=== PATIENT | male | born 1995 | race Hispanic/Latino ===

== ENCOUNTER 2018-12-08 21:15 | Emergency (ER) | payer OTHER ==
[2018-12-08 22:26] LABS: RAPID GROUP A STREP NEGATIVE (NEGATIVE)
[2018-12-08] MEDS ORDERED: DEXAMETHASONE SOD PHOSPHATE 10MG/ML 1ML VIAL ONE (22:28)
[2018-12-08] MEDS ORDERED: KETOROLAC TROMETHAMINE 60 MG/2 ML VIAL ONE (22:28)
[2018-12-08] MEDS ORDERED: ACETAMINOPHEN EXTRA STRENGTH 500 MG TABLET ONE (22:28)
[2018-12-08] MEDS ORDERED: IPRATROPIUM/ALBUTEROL SULFATE 3 ML SOLUTION IH ONE (22:29)
== END 2018-12-08 23:35 | disposition home or self-care (01) ==
LOC: EDH 21:15
DX: J09.X2 Influenza due to identified novel influenza A virus with other respiratory manifestations (principal); J45.909 Unspecified asthma, uncomplicated; E11.9 Type 2 diabetes mellitus without complications
CPT/HCPCS: 87804 ×2; 87880; 94640; 96372 ×2; 99283; J1100; J1885

== ENCOUNTER 2022-05-07 02:42 | Emergency (ER) | payer OTHER ==
[~2022-05-07] VITALS: Ht 172.7 cm; Wt 147.4 kg
[2022-05-07 04:28] LABS: BASOPHILS % (AUTO) 0.4 % (0.0-5.0); HEMATOCRIT 38.5 % (42-54); LYMPHOCYTES % (AUTO) 28.2 % (21.0-51.0); MEAN CORPUSCULAR HEMOGLOBIN 28.2 pg (27.0-33.0); MEAN CORPUSCULAR HGB CONC 33.5 g/dL (32.0-36.0); MEAN CORPUSCULAR VOLUME 84.1 fL (79-99); MONOCYTES % (AUTO) 5.4 % (3.0-13.0); NEUTROPHILS % (AUTO) 64.2 % (40.0-77.0); PLATELET COUNT (AUTO) 227 K/uL (130-400); RED BLOOD CELL COUNT(AUTO) 4.58 MIL/uL (4.50-6.20); RED CELL DISTRIBUTION WIDTH 13.5 % (11.0-15.5); WHITE BLOOD COUNT (AUTO) 9.2 K/uL (4.8-10.8)
[2022-05-07 04:35] LABS: CREATININE 1.4 mg/dL (0.5-1.5); POTASSIUM 3.4 mmol/L (3.5-5.1)
[2022-05-07 04:40] LABS: ALBUMIN 3.3 g/dL (3.5-5.0)
[2022-05-07 05:16] VITALS: BP 138/82
== END 2022-05-07 05:19 | disposition home or self-care (01) ==
LOC: EDH 02:42
DX: S96.912A Strain of unspecified muscle and tendon at ankle and foot level, left foot, initial encounter (principal); I10 Essential (primary) hypertension; F41.9 Anxiety disorder, unspecified; R00.2 Palpitations; X58.XXXA Exposure to other specified factors, initial encounter; Y93.89 Activity, other specified; Y92.89 Other specified places as the place of occurrence of the external cause; Y99.8 Other external cause status
CPT/HCPCS: 36415; 71045; 80053; 82550; 84484; 85025; 93005

== ENCOUNTER 2022-09-18 10:43 | Emergency (ER) | payer OTHER ==
[~2022-09-18] VITALS: Ht 172.7 cm; Wt 163.3 kg
[2022-09-18] MEDS ORDERED: AMOX1TAB16 PO (13:12)
[2022-09-18] MEDS ORDERED: AMOX/CLAV 875/125MG TAB PO ONE (13:30)
[2022-09-18 15:40] VITALS: BP 140/94
== END 2022-09-18 15:41 | disposition home or self-care (01) ==
LOC: EDH 10:43
DX: R59.0 Localized enlarged lymph nodes (principal); E11.9 Type 2 diabetes mellitus without complications; I10 Essential (primary) hypertension; F41.9 Anxiety disorder, unspecified
CPT/HCPCS: 36415; 86701; 87390

== ENCOUNTER 2022-09-22 12:24 | Emergency (ER) | payer OTHER ==
[~2022-09-22] VITALS: Ht 172.7 cm; Wt 148.8 kg
[~2022-09-22 12:24] MED LIST: AMOX1TAB16 PO
[2022-09-22] MEDS ORDERED: ACETAMINOPHEN 500 MG TABLET PO STA (13:49)
[2022-09-22] MEDS ORDERED: ONDANSETRON 4MG INJ IVP ONE (14:00)
[2022-09-22] MEDS ORDERED: 0.9%NACL 1000ML 1,000 ML IV ONE (14:00)
[2022-09-22 14:24] LABS: BASOPHILS % (AUTO) 0.1 % (0.0-5.0); EOSINOPHILS % (AUTO) 0.5 % (0.0-8.0); HEMATOCRIT 42.4 % (42-54); LYMPHOCYTES % (AUTO) 9.4 % (21.0-51.0); MEAN CORPUSCULAR HEMOGLOBIN 28.1 pg (27.0-33.0); MONOCYTES % (AUTO) 7.8 % (3.0-13.0); NEUTROPHILS % (AUTO) 81.5 % (40.0-77.0); PLATELET COUNT (AUTO) 197 K/uL (130-400); RED BLOOD CELL COUNT(AUTO) 4.99 MIL/uL (4.50-6.20); RED CELL DISTRIBUTION WIDTH 13.5 % (11.0-15.5); WHITE BLOOD COUNT (AUTO) 7.4 K/uL (4.8-10.8)
[2022-09-22 14:45] LABS: CREATININE 1.4 mg/dL (0.5-1.5); POTASSIUM 3.7 mmol/L (3.5-5.1)
[2022-09-22 14:50] LABS: ALBUMIN 3.5 g/dL (3.5-5.0); TOTAL PROTEIN, SERUM 7.3 g/dL (6.0-8.3)
[2022-09-22 14:56] VITALS: BP 136/66
== END 2022-09-22 16:21 | disposition home or self-care (01) ==
LOC: EDH 12:24
DX: J32.9 Chronic sinusitis, unspecified (principal); Z20.822 Contact with and (suspected) exposure to COVID-19; I10 Essential (primary) hypertension; F41.9 Anxiety disorder, unspecified
CPT/HCPCS: 99283; 96374; 87635; 96361; 80053; 85025; 87804 ×2; 86000; 36415; C9803; J7030; J2405

== ENCOUNTER 2025-04-15 22:55 | Emergency (ER) | payer OTHER ==
[~2025-04-15] VITALS: Ht 172.7 cm; Wt 147.0 kg
[~2025-04-15 22:55] MED LIST changes: -AMOX1TAB16 PO; +ATOR40TA69 PO; +FENO145T PO; +FISH1CAP20 PO; +INSLAN SQ; +INSU100V3 SQ; +LISI5TAB21 PO; +Niacin PO; +POTA-364 PO
--- NOTE | 2025-04-15 23:20 | ERN ---
ED Note History of Present Illness Stated Complaint: C/O HIGH SUGAR Chief Complaint: Blood Sugar Problem Time Seen by MD: 22:57 Time Seen by Midlevel: 22:57 Dictation: The patient is a 29-year-old male with a history of diabetes type 2 on metformin who presents to the emergency department for evaluation of hyperglycemia. Patient reports that yesterday his blood sugars were 500 and today history agrees were in the 300s. Patient denies any nausea vomiting or diarrhea. Denies any recent illness. Allergies: Coded Allergies: No Known Drug Allergies (Unverified Allergy, Unknown, 05/07/22) Home Meds Active Scripts Potassium Chloride (Potassium Chloride) 20 Meq Tablet.er, 20 MEQ PO DAILY for 3 Days, #3 TAB Prov:BATSHEVA AMOS 12/05/23 [place]-3 Fatty Acids/Fish Oil (Eql Fish Oil 1,000 mg Softgel) 300 Mg-1,000 Mg Capsule, 2000 MG PO DAILY, #30 CAP 2 Refills Prov:BATSHEVA AMOS 12/05/23 [Niacin] 500 MG SRTAB No Conflict Check, 1000 MG PO HS, #30 TAB 2 Refills Prov:BATSHEVA AMOS 12/05/23 Insulin Regular, Human (Humulin R) 100 Unit/Ml Vial, 10 UNIT SQ TIDAC, #1 VIAL 3 Refills Prov:BATSHEVA AMOS 12/05/23 Insulin Glargine,Hum.rec.anlog (Lantus) 100 Unit/Ml Inj, 40 UNITS SQ BID@0730,2100, #10 ML 3 Refills Prov:BATSHEVA AMOS 12/05/23 Fenofibrate Nanocrystallized (Tricor) 145 Mg Tablet, 145 MG PO HS, #30 TAB 2 Refills Prov:BATSHEVA AMOS 12/05/23 Atorvastatin Calcium (LIPITOR) 40 Mg Tablet, 40 MG PO HS, #30 TAB 2 Refills Prov:BATSHEVA AMOS 12/05/23 Reported Medications Lisinopril (Lisinopril) 5 Mg Tablet, 5 MG PO DAILY, TAB 24 Past Medical History Past Medical History: Anxiety, Depression, Diabetes-Type II, Hypertension Additional Past Medical Hx: PTSD Surgical History: None Surgical History Other: OTHER Social History: Negative, Lives with family RN Note Reviewed/Agreed w/PFSH: Yes Review of System Dictation Constitutional: Negative for fever,chills, and weight loss Eyes: Negative for injury, pain,redness, and discharge ENT: Negative for injury,pain or swelling Cardiovascular: Negative for chest pain, palpitations, and edema Respiratory: Negative for shortness of breath, cough, and wheezing, Abdomen/GI: Negative for abdominal pain, nausea, vomiting, diarrhea, and constipation Back: Negative for injury and pain : Negative for injury, bleeding and discharge MS/Extremity: Negative for injury and deformity Skin: Negative for rash, and discoloration Neuro: Negative for headache, weakness, numbness, tingling, and seizure Psych: Negative for suicide ideation, homicidal ideation, and hallucinations Initial Vital Sign VS Vital Signs Date Time Temp Pulse Resp B/P (MAP) Pulse Ox O2 Delivery O2 Flow Rate FiO2 04/15/25 22:57 98.8 95 20 146/94 95 Room Air 04/15/25 23:35 0 21 Physical Exam Dictation Vital Signs reviewed General Appearance: Alert, oriented x 3, no acute distress, well developed, nourished. Head and Face: non-traumatic. Eyes: PERRL, pink conjunctivas, eyelid no trauma, anterior chamber with arcus senilis. Ears: Pinnas intact and no signs of trauma or erythema ear canals clear and no discharge TM no erythema Nose: No discharge, no bleeding. Oropharynx: Mouth normal, tongue pink. pharynx clear,no erythema, tonsils no exudates, no abscesses noted, mucous membrane moist Neck: Supple, non-tender, no thyromegaly, no masses, no JVD, no bruits Breast:Deferred Chest:No tenderness, no crepitus, no paradoxical movement, no retractions Lungs:Clear, well-ventilated, symmetric, no rales, no wheezing, no rhonchi, no stridor, good breath sounds bilaterally Heart: Regular rate, regular rhythm, no murmur, no gallops Vascular: no peripheral edema, Abdomen: Soft, positive bowel sounds, nondistended, no guarding, nontender, no rebound, no masses no hepatomegaly, no splenomegaly, no Ngo's sign, no hernias. Rectal: Deferred Genital: Deferred Neurological: Normal speech, motor function intact, sensory function intact Musculoskeletal: Neck nontender, full range of motion, back nontender, full range of motion, Extremities: nontender, full range of motion Skin: Color pink, dry, no turgor, no rash, no lacerations, no abrasions, no contusions. Lymphatic: Deferred Results (Laboratory/Radiology) Laboratory/Radiology Laboratory Tests Test 04/15/25 23:01 04/15/25 23:32 Whole Blood Glucose 225 MG/DL (70-110) H White Blood Count 7.6 K/uL (4.8-10.8) Red Blood Count 4.67 MIL/uL (4.50-6.20) Hemoglobin 13.0 g/dL (14.0-18.0) L Hematocrit 38.8 % (42-54) L Mean Corpuscular Volume 83.1 fL (79-99) Mean Corpuscular Hemoglobin 27.8 pg (27.0-33.0) Mean Corpuscular Hemoglobin Concent 33.5 g/dL (32.0-36.0) Red Cell Distribution Width 13.1 % (11.0-15.5) Platelet Count 231 K/uL (130-400) Mean Platelet Volume 10.0 fL (7.5-10.5) Immature Granulocyte % (Auto) 0.7 % (0-1) Neutrophils (%) (Auto) 49.6 % (40.0-77.0) Lymphocytes (%) (Auto) 41.3 % (21.0-51.0) Monocytes (%) (Auto) 6.0 % (3.0-13.0) Eosinophils (%) (Auto) 2.0 % (0.0-8.0) Basophils (%) (Auto) 0.4 % (0.0-5.0) Neutrophils # (Auto) 3.8 K/uL (1.8-7.7) Lymphocytes # (Auto) 3.2 K/uL (1.0-4.8) Monocytes # (Auto) 0.5 K/uL (0.1-1.0) Eosinophils # (Auto) 0.15 K/uL (0.00-0.70) Basophils # (Auto) 0.03 K/uL (0.00-0.20) Absolute Immature Granulocyte (auto 0.05 K/uL (0-1) Nucleated Red Blood Cells 0.0 % (0.0-0.19) Sodium Level 135 mmol/L (136-145) L Potassium Level 3.6 mmol/L (3.5-5.1) Chloride Level 100 mmol/L (101-111) L Carbon Dioxide Level 25 mmol/L (21-32) Blood Urea Nitrogen 16 mg/dL (7-18) Creatinine 1.1 mg/dL (0.5-1.3) Glomerular Filtration Rate Calc 92 mL/min (>90) Random Glucose 223 mg/dL (70-105) H Total Calcium 8.4 mg/dL (8.5-10.1) L Labs Reviewed?: Yes ED Course ED Course Orders Procedure Category Date Status Time Cbc With Differential LAB 04/15/25 Complete 23:08 Urinalysis Profile LAB 04/15/25 Logged 23:08 0.9%Nacl 1000ml (Ns PHA 04/15/25 Complete 1000ml) 23:30 Basic Metabolic Panel LAB 04/15/25 Complete 23:08 Current Medications Medications (Trade) Dose Ordered Sig/Yael Route PRN Reason Start Time Stop Time Status Last Admin Dose Admin Sodium Chloride 1,000 ml @ 0 mls/hr ONCE ONCE IV 04/15/25 23:30 04/15/25 23:31 DC 04/15/25 23:24 Vital Signs Date Time Temp Pulse Resp B/P (MAP) Pulse Ox O2 Delivery O2 Flow Rate FiO2 04/15/25 23:35 99.0 89 18 133/66 99 Room Air* 0 21 04/15/25 22:57 98.8 95 20 146/94 95 Room Air Medical Decision Making MDM The patient is a 29-year-old male with a history of diabetes type 2 on metformin who presents to the emergency department for evaluation of hyperglycemia. Patient reports that yesterday his blood sugars were 500 and today history agrees were in the 300s. Patient denies any nausea vomiting or diarrhea. Denies any recent illness. CBC showed no leukocytosis, mild normocytic anemia, chemistry showed mild hyperglycemia but no DKA, mild hyponatremia, mild hypochloremia patient received IV fluids in ER. On physical exam patient is in no acute distress, nontoxic appearance. Labs discussed with the patient who [facility] Differential diagnosis: Uncontrolled diabetes, dehydration, DKA, electrolyte imbalance Need for hospitalization: Patient does not meet criteria for hospitalization. There are no social concerns with this patient. DX & DISP Disposition: Discharge Departure Impression: Primary Impression: Uncontrolled diabetes mellitus with hyperglycemia Condition: Stable Additional Instructions: Please follow up with your primary doctor in 1-2 days. Continue oral hydration at home. If anything changes please return to ER. FOLLOW-UP WITH PRIMARY CARE PROVIDER IN 1 TO 2 DAYS. TAKE MEDICATIONS DIRECTED HERE IN THE EMERGENCY ROOM. OKAY TO CONTINUE HOME MEDICATIONS UNLESS OTHERWISE DISCUSSED DURING YOUR VISIT IN THE EMERGENCY ROOM TODAY. RETURN TO YOUR NEAREST EMERGENCY ROOM IF SYMPTOMS WORSEN OR IF THERE IS NO IMPROVEMENT. CALL 911 IF YOU NEED IMMEDIATE ASSISTANCE. TAKE TYLENOL [id number] NEEDED AND IF NO CONTRAINDICATIONS ARE PRESENT. INCREASE ORAL HYDRATION. A WOUND CULTURE OR URINE CULTURE WAS ORDERED HERE IN THE EMERGENCY ROOM DEPARTMENT PLEASE FOLLOW-UP WITH PRIMARY CARE PROVIDER AND ADVISE THEM TO GET REPEAT PORTS FROM OUR FACILITY. IF YOU HAD ANY LAKSHMI WRAP/SPLINTS THAT WERE APPLIED HERE, PLEASE DO NOT REMOVE THEM UNTIL YOU SEE YOUR PRIMARY CARE OR SPECIALTY. Referrals: JUWAN BROWN MD (PCP) Time of Disposition: 01:16 I have reviewed the case, and I agree with, Diagnosis and Plan [facility] Apr 15, 2025 23:19
[2025-04-15] MEDS: 0.9%NACL 1000ML 1,000 ML IV ONE (23:24)
[2025-04-15 23:39] LABS: IMMATURE GRANULOCYTE ABSOLUTE 0.05 K/uL (0-1); NUCLEATED RED BLOOD CELLS 0.0 % (0.0-0.19); PLATELET COUNT (AUTO) 231 K/uL (130-400); RED BLOOD CELL COUNT(AUTO) 4.67 MIL/uL (4.50-6.20); RED CELL DISTRIBUTION WIDTH 13.1 % (11.0-15.5); WHITE BLOOD COUNT (AUTO) 7.6 K/uL (4.8-10.8)
[2025-04-15 23:49] LABS: CREATININE 1.1 mg/dL (0.5-1.3); GLOMERULAR FILTR. RATE CALC 92.0 mL/min (>90); GLUCOSE,RANDOM 223.0 mg/dL (70-105); SODIUM SERUM 135.0 mmol/L (136-145); UREA NITROGEN, BLOOD 16.0 mg/dL (7-18)
[2025-04-16 01:30] VITALS: BP 129/56; PULSE 75; RESP 15; TEMP 98.1; O2SAT 98
== END 2025-04-16 01:32 | disposition home or self-care (01) ==
LOC: EDH 22:55
DX: E11.65 Type 2 diabetes mellitus with hyperglycemia (principal); I10 Essential (primary) hypertension; Z79.4 Long term (current) use of insulin; Z79.899 Other long term (current) drug therapy
CPT/HCPCS: 99283; 96360; 80048; 85025; 82948; 36415; J7030